=== PATIENT | male | born 1945 | race Caucasian/White ===

== ENCOUNTER 2017-11-30 13:51 | Emergency (ER) | payer MEDICARE, BC, SELFPAY ==
[2017-11-30] VITALS (42 sets, daily range): BP systolic 135–173; BP diastolic 54–126; PULSE 58–77; RESP 8–22; TEMP 36.7; O2SAT 95–98
--- NOTE | 2017-11-30 14:17 | DI.CT_ITS ---
SYMPTOM/DIAGNOSIS: LIGHTHEADEDNESS NONCONTRAST HEAD CT: Comparison is made with 14 Aug 2017. No intracranial hemorrhage, mass or infarct is seen. There is minimal atrophy. The ventricles are normal in size. There are minimal small vessel changes of the white matter. The sinuses and mastoid air cells appear clear. The orbits are unremarkable. IMPRESSION: No acute abnormality.
--- NOTE | 2017-11-30 14:18 | DI.RAD_ITS ---
SYMPTOM/DIAGNOSIS: NEAR SYNCOPE PORTABLE CHEST: No prior comparison exams. The heart is enlarged. The aorta shows calcification. The lungs show mildly increased interstitial changes. No superimposed infiltrate, effusion or pulmonary edema is seen. IMPRESSION: No acute abnormality.
[2017-11-30] MEDS: Normal Saline 1,000 ML 1000 ML IV (14:30)
[2017-11-30 14:37] LABS: Abs Immature Grans 0.01 k/cumm (0.0-0.09); Absolute Basophil Count 0.02 k/cumm (0.0-0.2); Absolute Eosinophil Count 0.01 k/cumm (0.0-0.7); Absolute Monocyte Count 0.34 k/cumm (0.11-0.7); Absolute Neutrophil Count 4.97 k/cumm (1.2-6.7); Basophils % 0.3; Eosinophils % 0.2; HCT 47.1 % (40.0-50.0); HGB 16.3 g/dL (13.5-17.5); Immature Grans % 0.2; Lymphocytes % 15.7; Mean Corp. HGB Concentration 34.6 g/dL (32.0-36.0); Mean Corpuscular Hemoglobin 30.9 pg (27.0-33.0); Mean Corpuscular Volume 89.4 fL (80-95); Mean Platelet Volume 9.7 fL (8.0-11.0); Monocytes % 5.4; Neutrophils % 78.2; Platelet Count 228 x1000/uL (130-400); RBC 5.27 m/cumm (4.50-6.00); RBC Distribution Width 13.3 % (11.8-14.1); White Blood Cell Count 6.35 k/cumm (4.4-10.8)
[2017-11-30 14:49] LABS: INR 1.1 (1.0-3.5)
[2017-11-30 14:54] LABS: ALT 24 U/L (12-78); AST 24 U/L (15-37); Albumin 3.9 g/dL (3.4-5.0); Alkaline Phosphatase 118 U/L (46-116); BUN 13 mg/dL (7-18); Bilirubin, Total 0.6 mg/dL (0.2-1.0); CREATININE 1.04 mg/dL (0.70-1.30); Calcium 9.1 mg/dL (8.5-10.1); Chloride 101 mmol/L (98-107); Glucose 154 mg/dL (70-100); Sodium 135 mmol/L (136-145); Total Protein 7.8 g/dL (6.4-8.2)
[2017-11-30 14:55] LABS: Troponin I < 0.02 ng/mL (0.00-0.06)
--- NOTE | 2017-11-30 15:06 | DI.VRAD_ITS ---
EXAM: CT Head Without Intravenous Contrast CLINICAL HISTORY: 72 years old, male; Signs and symptoms; Syncope and collapse TECHNIQUE: Axial computed tomography images of the head/brain without intravenous contrast. Coronal and sagittal reformatted images were created and reviewed. COMPARISON: CT - HEAD WITHOUT CONTRAST 08/14/2017 11:47 PM FINDINGS: Chronic white matter changes of probable small vessel disease. No evidence of hemorrhage. No mass effect. No acute intracranial abnormality. IMPRESSION: No evidence of acute intracranial process. Dictated and Authenticated by: Cuauhtemoc Roland MD. Ordering:JEAN PUAL CAVANAUGH MD
--- NOTE | 2017-11-30 15:08 | DI.VRAD_ITS ---
EXAM: XR Chest, 1 View CLINICAL HISTORY: 72 years old, male; Signs and symptoms; Other: Syncope TECHNIQUE: Frontal view of the chest. COMPARISON: No relevant prior studies available. FINDINGS: Diffuse interstitial lung scarring. Mild cardiomegaly. No focal pulmonary consolidation. Costophrenic angles sharp. Bony structures unremarkable for age. IMPRESSION: Mild chronic lung disease and minimal cardiomegaly without other specific etiology identified for the patient's symptoms. Dictated and Authenticated by: Cuauhtemoc Roland MD. Ordering:JEAN PAUL CAVANAUGH MD
--- NOTE | 2017-11-30 21:01 | ED.GENADUL_ITS ---
Discharge Plan Disposition Patient Disposition: HOME Condition: Good Discharge Details Chief Complaint: AMS/LOC Clinical Impression: Near syncope, Dehydration Reason For Visit: syncope /confusion Primary Care Provider: Anuel Landis ED Provider: Olivier Nick Home Meds and New Rx's Prescriptions: No Action lamotrigine 100 MG tablet 100 mg PO as directed Qty: 60 RF: 5 apixaban [Eliquis] 5 MG tablet 5 mg PO BID RF: 0 Discharge Instructions Instructions: Near Syncope (ED) Additional Instructions: Please take your home medications as directed. Please drink 8-10 cups of water per day. Please follow-up with your neurologist as soon as possible for reassessment. If you notice any worsening of your symptoms, or any new symptoms such as vomiting, diarrhea, fever, chills, shortness of breath, chest pain, numbness, weakness, or fainting , please return immediately to the emergency department for reevaluation. Please follow up with your primary care provider as soon as possible for reassessment and reevaluation. As always, it was a pleasure participating in your medical care today. You should not drive, operate machinery, climb heights (such as a ladder), swim , or bathe alone or do anything else which could be dangerous if you would have another seizure. Please abide by this for the next 6 months or until cleared by a physician. Referrals: Anuel Landis MD [Primary Care Provider] - Discharge Data Discharge Date/Time-TO BE ENTERED AT DEPARTURE: 11/30/17 17:53 Medical Decision Making MDM Narrative Medical decision making narrative: This is a very pleasant 72-year-old male who presents for mild lightheadedness. He states that it is been occurring since this morning. He has had no syncope, has not passed out, and has not hit his head. He is on Eliquis for A. fib. He is on lamotrigine for history of atypical seizures. Physical exam demonstrates mild dehydration with slightly dry tongue, otherwise normal physical exam. Most importantly demonstrates a completely benign normal neurologic exam, has no headache, no signs of trauma. Was able to get the patient seated upright quickly and he demonstrated no symptoms of lightheadedness. He demonstrates a normal mental status with no signs of confusion at this time. Laboratory workup, troponin, CT head, and chest x-ray are negative for any acute process. EKG shows good capture, negative for scarbossas criterion. I was able to get the patient up, ambulate him around and he did well without any complication. The patient has asked to leave, and states that if he could go right now he would be fine with signing his AMA waivers. I do not think this is needed at all as the remainder of the patient's laboratory workup has just returned as well as the results of his imaging studies. After being rehydrated the patient continues to feel very well and demonstrates a normal neurologic exam. I discussed the risks and benefits of further observation, serial troponins, and potential admission for neurology, versus discharge home with close neurology follow-up and PCP follow- up. Patient is requesting to be discharged with close follow-up. I feel that this is reasonable in light of his normal workup, negative imaging, normal neurologic exam. I feel symptoms most likely secondary to a mild dehydration etiology, and less likely cardiac or neurologic. I discussed red flags with the patient and his family member at bedside for which to return the patient understands. I have extensively reviewed the treatment plan and discharge instructions with the patient. I have addressed all patient concerns at this time. The patient was made aware of what symptoms to monitor for that would warrant a return to the emergency department. Discussed the plan with the patient, they demonstrate verbal understanding and agreement with our assessment and plan at this time. 14: 19 EKG Rate 60,EKG QTc 466, QRS 178, electronic ventricular pacing with good capture. 2 mm elevation in V2 and 3 mm elevation in V3 1 million mm elevation in V4. No inverted T waves. No Q waves. Review of prior EKGs from July 2017 demonstrate similar findings. EKG demonstrates good capture, negative for scarbossas criterion CT scan of the head per virtual radiology no evidence of acute intracranial process. X-ray per virtual radiology no evidence of acute process. Mild cardiomegaly, chronic interstitial lung disease.. Lab Data Lab Results 11/30/17 11/30/17 11/30/17 Range/Units 14:30 14:30 14:30 WBC 6.35 (4.4-10.8) k/cumm RBC 5.27 (4.50-6.00) m/cumm Hgb 16.3 (13.5-17.5) g/dL Hct 47.1 (40.0-50.0) % MCV 89.4 (80-95) fL MCH 30.9 (27.0-33.0) pg MCHC 34.6 (32.0-36.0) g/dL RDW 13.3 (11.8-14.1) % Plt Count 228 (130-400) x1000/uL MPV 9.7 (8.0-11.0) fL Immature Gran % 0.2 Neutrophils % 78.2 Lymphocytes % 15.7 Monocytes % 5.4 Eosinophils % 0.2 Basophils % 0.3 Absolute Neutrophils 4.97 (1.2-6.7) k/cumm Absolute Lymphocytes 1.00 L (1.2-3.4) k/cumm Absolute Monocytes 0.34 (0.11-0.7) k/cumm Absolute Eosinophils 0.01 (0.0-0.7) k/cumm Absolute Basophils 0.02 (0.0-0.2) k/cumm PT 11.0 H (9.3-10.8) sec INR 1.1 (1.0-3.5) APTT 28.0 (21.0-31.4) sec Sodium 135 L (136-145) mmol/L Potassium 4.0 (3.5-5.1) mmol/L Chloride 101 (98-107) mmol/L Carbon Dioxide 31.0 (21.0-32.0) mmol/L Anion Gap 3.0 (3-11) mmol/L BUN 13 (7-18) mg/dL Creatinine 1.04 (0.70-1.30) mg/dL Estimated GFR/1.73 m2 >= 60.00 (mL/min/1.73m2) Glucose 154 H (70-100) mg/dL Calcium 9.1 (8.5-10.1) mg/dL Total Bilirubin 0.6 (0.2-1.0) mg/dL AST 24 (15-37) U/L ALT 24 (12-78) U/L Alkaline Phosphatase 118 H (46-116) U/L Troponin I < 0.02 (0.00-0.06) ng/mL Total Protein 7.8 (6.4-8.2) g/dL Albumin 3.9 (3.4-5.0) g/dL HPI - General Adult General Date/Time Provider Initiated Documentation: 11/30/17 14:15 . HPI Narrative: This is a pleasant 72-year-old male with a past medical history of A. fib, who is on Eliquis, atypical seizures which usually present like syncope for which she is on lamotrigine, and a lead list pacemaker was just placed a few months ago at [facility]. He presents today with lightheadedness. The patient states that since this morning when he is sat upright quickly or has gotten up quickly he begins to get very lightheaded. He denies any loss of consciousness, tunnel vision, headache, chest pain, shortness of breath, arm pain, neck pain, vomiting diarrhea or weakness. He states that his symptoms are always fine if the stay seated, or takes this time. The patient states that he has a history of atypical seizures, for which she used to be on Keppra, but is now on lamotrigine. He sees a local neurologist Dr. Voss. He states that his seizures sometimes do present like this with mild lightheadedness. He denies any tonic-clonic movements. He denies any actual syncope, fall, or trauma. Patient denies any pertinent family history. He denies IV or illicit drug use. He has no other complaints at this time. He has been taking his medications as directed. Related Data Home Medications Medication Instructions Recorded Confirmed apixaban [Eliquis] 5 mg PO BID 07/02/17 11/30/17 Allergies Allergy/AdvReac Type Severity Reaction Status Date / Time garlic AdvReac Intermediate Other (See Unverified 09/12/17 12:28 Comment) gluten AdvReac Intermediate Other (See Unverified 09/12/17 12:28 Comment) lactose AdvReac Intermediate Other (See Unverified 09/12/17 12:28 Comment) wheat AdvReac Intermediate digestive Unverified 09/12/17 12:28 onion AdvReac Other (See Unverified 09/12/17 12:28 Comment) General Stated Complaint: AMS/LOC JULIANNA: 2 Review of Systems Review of Systems 10 point review of systems was performed, pertinent positives and negatives are noted in the history of present illness. PFSH Family History Mother Alzheimer disease Father Alcohol abuse [place] (myocardial infarction) Social History Smoking/Tobacco Use Status: Former Tobacco Use Surgical History Colonoscopy - IV Sedation (02/01/16) Exam Narrative Exam Narrative: 1.Const: Well-nourished, Well-developed, appearing stated age 2.Eyes: PERRL, no conjunctival injection, and symmetrical lids. 3.ENT: Atraumatic external nose and ears. Moist MM. Neck: Symmetric, trachea midline, No thyromegaly. 4.CVS: +S1/S2, No murmurs or gallops. Peripheral pulses 2+ and equal in all extremities. Brisk capillary refill in all extremities. 5.RESP: Unlabored respiratory effort. Clear to auscultation bilaterally. No wheezes rales or rhonchi 6.GI: Soft, Nontender/Nondistended, No hepatosplenomegaly. No guarding or rebound. 7.MSK: Normocephalic/Atraumatic, Extremities w/o deformity or ttp No cyanosis or clubbing, Normal movement of all extremities. I did get the patient up and sit him up quickly he tolerated this well with no lightheadedness. Patient did ambulate well without any difficulty. 8.Skin: Warm, Dry. No rashes or lesions. 9.Neuro: family dinner service specialist II-XII grossly intact. Sensation grossly intact, no focal neurologic deficits. All 6 cardinal planes of vision or fully intact. No evidence of horizontal or vertical nystagmus. The patient demonstrated a normal [id number], good dexterity. There was no evidence of dysdiadochokinesia. Patient was able to ambulate without difficulty. There was no wide-based gait. Romberg, and [id number] are both normal on testing. Sensation was intact bilaterally as well as muscle strength bilaterally for all extremities. Patient was able to verbalize butter cup with no slurring, or miss pronunciation. 10.Psych: (AAO) x3. Appropriate mood and affect Course Vital Signs Pulse 60 11/30/17 14:01 Respiratory Rate 13 11/30/17 14:01 Blood Pressure 157/70 H 11/30/17 14:01 Pulse Oximetry 97 11/30/17 14:01 Temperature 36.7 C 11/30/17 14:03 Pulse 61 11/30/17 17:54 Respiratory Rate 19 11/30/17 17:54 Blood Pressure 146/64 H 11/30/17 17:54 Pulse Oximetry 96 11/30/17 17:54 Lab/Test Results Lab/Test Results: Laboratory Tests 11/30/17 11/30/17 11/30/17 14:30 14:30 14:30 WBC 6.35 RBC 5.27 Hgb 16.3 Hct 47.1 MCV 89.4 MCH 30.9 MCHC 34.6 RDW 13.3 Plt Count 228 MPV 9.7 Immature Gran % 0.2 Neutrophils % 78.2 Lymphocytes % 15.7 Monocytes % 5.4 Eosinophils % 0.2 Basophils % 0.3 Absolute Neutrophils 4.97 Absolute Lymphocytes 1.00 L Absolute Monocytes 0.34 Absolute Eosinophils 0.01 Absolute Basophils 0.02 PT 11.0 H INR 1.1 APTT 28.0 Sodium 135 L Potassium 4.0 Chloride 101 Carbon Dioxide 31.0 Anion Gap 3.0 BUN 13 Creatinine 1.04 Estimated GFR/1.73 m2 >= 60.00 Glucose 154 H Calcium 9.1 Total Bilirubin 0.6 AST 24 ALT 24 Alkaline Phosphatase 118 H Troponin I < 0.02 Total Protein 7.8 Albumin 3.9
== END 2017-11-30 17:53 | disposition home or self-care (01) ==
PROVIDERS: Emergency Provider Student in an Organized Health Care Education/Training Program; PCP Internal Medicine
DX: R55 Syncope and collapse (principal); E86.0 Dehydration; Z95.0 Presence of cardiac pacemaker
CPT/HCPCS: 36415; 36416; 80053; 82962; 93005; 96360; 99285; 70450; 71045; 84484; 85025; 85610; 85730; 93010

== ENCOUNTER → 2017-12-09 14:03 | Outpatient (BNVA) | payer MEDICARE, BC, SELFPAY | PROVIDERS: PCP Internal Medicine; Visit Provider Psychiatry & Neurology Neurology | DX: G40.109 Localization-related (focal) (partial) symptomatic epilepsy and epileptic syndromes with simple partial seizures, not intractable, without status epilepticus (principal) | CPT/HCPCS: 99213 ==

== ENCOUNTER 2018-04-17 11:33 | Outpatient (CLI) | payer MEDICARE, BC, SELFPAY ==
--- NOTE | 2018-04-17 13:05 | DI.CT_ITS ---
SYMPTOMS/DIAGNOSIS: H/O CLOSED HEAD INJURY, Z87.820, FELL ON ICE, SHORT TERM MEMORY LOSS CRANIAL CT: The noncontrast enhanced examination was carried out according to the usual protocol. Atrophic changes consistent with age are demonstrated. There is no evidence of an intra or extra-axial hemorrhage, mass or fluid collection or edema. Regions of diminished absorption are noted in the frontoparietal white matter consistent with small vessel disease. The ventricles are intact. The midline is preserved throughout. There is no evidence of a skull fracture. There is no evidence of sinus disease. The mastoid air cells are intact with no evidence of a mastoid effusion. SUMMARY: No evidence of an acute intracranial abnormality.
== END 2018-04-17 11:53 ==
PROVIDERS: PCP Internal Medicine; Visit Provider Internal Medicine
DX: R41.3 Other amnesia (principal); Z87.820 Personal history of traumatic brain injury
CPT/HCPCS: 70450

== ENCOUNTER → 2018-05-05 13:44 | Outpatient (BNVA) | payer MEDICARE, BC, SELFPAY | PROVIDERS: PCP Internal Medicine; Visit Provider Internal Medicine Cardiovascular Disease | DX: R69 Illness, unspecified (principal) ==

== ENCOUNTER 2018-05-05 14:12 | Outpatient (CLI) | payer MEDICARE, BC, SELFPAY | END 2018-05-05 14:32 | PROVIDERS: PCP Internal Medicine; Visit Provider Internal Medicine Cardiovascular Disease | DX: I48.91 Unspecified atrial fibrillation (principal); I45.9 Conduction disorder, unspecified; Z95.0 Presence of cardiac pacemaker; I10 Essential (primary) hypertension; Z79.01 Long term (current) use of anticoagulants | CPT/HCPCS: 99204; 99214; 93005; 93010 ==

== ENCOUNTER 2018-06-03 09:19 | Outpatient (REF) | payer MEDICARE, BC, SELFPAY ==
[2018-06-03 13:17] LABS: TSH 1.57 uIU/mL (0.358-3.74)
[2018-06-04 10:01] LABS: Prolactin 8.6 ng/ml (2.1-17.7)
[2018-06-09 09:05] LABS: Misc Referral (UVM) See Comments
== END 2018-06-03 09:39 ==
LOC: NCHCN 09:19
PROVIDERS: PCP Internal Medicine; Visit Provider Internal Medicine
DX: R53.83 Other fatigue (principal); N52.9 Male erectile dysfunction, unspecified
CPT/HCPCS: 84402; 84403; 84146; 84443

== ENCOUNTER → 2018-06-09 12:13 | Outpatient (BNVA) | payer MEDICARE, BC, SELFPAY | PROVIDERS: PCP Internal Medicine; Visit Provider Psychiatry & Neurology Neurology | DX: G40.109 Localization-related (focal) (partial) symptomatic epilepsy and epileptic syndromes with simple partial seizures, not intractable, without status epilepticus; G60.9 Hereditary and idiopathic neuropathy, unspecified; I10 Essential (primary) hypertension | CPT/HCPCS: 99214 ==

== ENCOUNTER → 2018-11-05 13:25 | Outpatient (BNVA) | payer MEDICARE, BC, SELFPAY | PROVIDERS: PCP Internal Medicine; Referring Provider Internal Medicine; Visit Provider Student in an Organized Health Care Education/Training Program | DX: M72.0 Palmar fascial fibromatosis [Dupuytren] (principal) | CPT/HCPCS: 99204; 99213 ==

== ENCOUNTER 2018-11-28 15:21 | Outpatient (REF) | payer MEDICARE, BC, SELFPAY ==
[2018-12-01 10:44] LABS: PSA, Screening 2.1 ng/ml (0-6.5)
== END 2018-11-28 15:41 ==
LOC: NCHCN 15:21
PROVIDERS: PCP Internal Medicine; Visit Provider Internal Medicine
DX: Z12.5 Encounter for screening for malignant neoplasm of prostate (principal); N40.0 Benign prostatic hyperplasia without lower urinary tract symptoms
CPT/HCPCS: 84153

== ENCOUNTER → 2018-12-08 09:30 | Outpatient (BNVA) | payer MEDICARE, BC, SELFPAY | PROVIDERS: PCP Internal Medicine; Visit Provider Psychiatry & Neurology Neurology | DX: G40.109 Localization-related (focal) (partial) symptomatic epilepsy and epileptic syndromes with simple partial seizures, not intractable, without status epilepticus; G60.9 Hereditary and idiopathic neuropathy, unspecified; Z78.9 Other specified health status; I10 Essential (primary) hypertension | CPT/HCPCS: 99214 ==

== ENCOUNTER 2019-02-10 08:48 | Day surgery (SDC) | payer MEDICARE, BC, SELFPAY ==
[2019-02-10 09:16] VITALS: BP 148/80; PULSE 79; RESP 16; TEMP 36.7; O2SAT 98
[2019-02-10] MEDS: Lactated Ringers 1,000 ML 80 ML IV (09:45)
--- NOTE | 2019-02-10 11:09 | HPE_ITS ---
Date of service: 02/10/19 Time of Service: 11:10 Assessment and Plan Assessment and plan (1) Dupuytren's contracture of left hand: Status: Chronic Assessment and plan: Valdemar is a 73yo with Dupuytren's contracture of the left hand. He has significant limitations due to the contracture and would benefit from partial palmar fasciectomy. I discussed the risks of the procedure to include bleeding, infection, pain, stiffness, damage to nerves and vessels, recurrence, skin healing difficulties. Despite these risks he agrees to proceed. He has stopped his Eliquis for 24 hours. History of Present Illness History of Present Illness Chief Complaint: Left Little Finger Dupuytren's Contracture Narrative: Valdemar is a 73yo who has had progressive dysfunction due to contracture of the left little finger. He was diagnosed with Dupuytren's contracture. After discussing treatment options, he desired to proceed with surgery. He denies any numbness or tingling. He has had no changes to the skin or signs of infection. He has known A-fib which is relatively controlled with medications and pacer. He is on Eliquis for anti-coagulation. 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) Manifested by confusion and asystole Hypertension (Chronic) Skin carcinoma (Chronic) Tubular adenoma of colon (Chronic 02/01/16) Surgical History Colonoscopy - IV Sedation (02/01/16) History of tonsillectomy (Chronic) Pacemaker (Acute) June 2017 Social History Smoking/Tobacco Use Status: Former Tobacco Use Quit Date: 03/25/66 Alcohol Intake: current Alcohol Intake frequency: 0-2 drinks per day Alcohol type: wine Drug use: Never Household members: spouse current occupation: Works for the [employer] Do you feel safe at home: Yes Do you feel safe in your relationship?: Yes Additional Social history: . 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 Former smoker. He drinks one glass of wine most evenings. No illicit drug use. Meds Home Medications and Allergies Home Medications Medication Instructions Recorded Confirmed Type Eliquis 5 mg PO BID 07/02/17 02/10/19 History clonazepam 0.5 mg disintegrating 0.5 mg PO DIRECTED #10 tab 12/09/17 02/10/19 Rx tablet amlodipine 5 mg tablet 5 mg PO DAILY 05/05/18 02/10/19 History lamotrigine 100 mg tablet 100 mg PO BID #180 tab 12/08/18 02/10/19 Rx Allergies Allergy/AdvReac Type Severity Reaction Status Date / Time garlic AdvReac Intermediate Other (See Unverified 02/10/19 09:14 Comment) gluten AdvReac Intermediate Other (See Unverified 02/10/19 09:14 Comment) lactose AdvReac Intermediate Other (See Unverified 02/10/19 09:14 Comment) wheat AdvReac Intermediate digestive Unverified 02/10/19 09:14 onion AdvReac Other (See Unverified 02/10/19 09:14 Comment) Exam Const General: cooperative, healthy appearing, comfortable and no acute distress Nutritional Appearance: average body habitus Orientation: alert, awake and oriented x3 Resp Effort & Inspection: normal respiratory effort Auscultation: clear to auscultation bilaterally Cardio Rate: regular rate Rhythm: abnormal rhythm Extrem Other: Left hand shows significant contracture of the left little finger, 90degrees at the MCP joint. SILT dorsally and palmarly to the finger. Results Last Vital Signs Temp 36.7 C 02/10/19 09:16 Pulse 79 02/10/19 09:16 Resp 16 02/10/19 09:16 BP 148/80 H 02/10/19 09:16 Pulse Ox 98 02/10/19 09:16
--- NOTE | 2019-02-10 11:25 | W.PM.DSUDISC ---
Discharge Plan Disposition Patient Disposition: HOME Condition: Good Discharge Details Reason For Visit: LLF Dupuytren's Attending Provider: Radhames Wang Primary Care Provider: Anuel Landis Home Meds and New Rx's Prescriptions: New hydrocodone-acetaminophen 5-325 mg tablet 1 tab PO Q6H PRN PRN (Reason: pain) Qty: 8 RF: 0 acetaminophen 500 mg tablet 500 mg PO Q6H PRN PRN (Reason: pain) Qty: 60 RF: 3 ibuprofen 600 mg tablet 600 mg PO TID PRNQty: 30 RF: 3 Continued amlodipine 5 mg tablet 5 mg PO DAILY RF: 0 clonazepam 0.5 mg tablet,disintegrating 0.5 mg PO DIRECTED Qty: 10 RF: 0 lamotrigine 100 mg tablet 100 mg PO BID Qty: 180 RF: 3 Eliquis 5 MG tablet 5 mg PO BID RF: 0 Discharge Instructions Additional Instructions: Activity: You may use your fingers for light activity. You should limit any excessive motion or forceful gripping until the sutures have been removed. Splint may be worn for the first 3 days and then at night to help keep the finger extended. Dressings: You should keep the initial surgical dressing in place for at least 3 days. You may remove your dressings and get the wound wet after 3 days. You should keep the dressings and the wound clean at all times. You may keep the initial dressing in place until your follow-up but keep the wound covered with light gauze until the sutures are removed. You will have a splint to help keep the finger extended. This may be removed at 3 days and used as desired. Medications: - You should take Tylenol and Ibuprofen around the clock as prescribed or per field laboratory operator's recommendations. - You have Hydrocodone prescribed for breakthrough pain control. Take only as needed and limit use as much as possible. This may cause constipation. Follow-up: 7-10 days for wound check and suture removal. Referrals: Radhames Wang MD [ [facility] STAFF PHYSICIAN] - Equipment/Supplies: Splint Activity:: Elevate Remove Dressings/Wound Care:: 72 hours Shower/Bathe:: 72 hours Diet:: As Tolerated Discharge Orders Discharge Orders: Discharge Order (Routine); Ordered 02/10/19 Ordered By: Radhames Wang DS: Diagnosis Discharge Diagnosis (1) Dupuytren's contracture of left hand: Status: Chronic
[2019-02-10] MEDS: ceFAZolin 2 GM/50 ML BAG IVPB (11:34)
[2019-02-10] MEDS: Lidocaine 1% Multi-Dose 50 ML VIAL (11:43)
[2019-02-10] MEDS: Sodium Bicarbonate 50 MEQ/50 ML VIAL (11:43)
[2019-02-10] MEDS: Bupivacaine 0.5% Pres-Free 30 ML VIAL (12:02)
[2019-02-10 13:20] VITALS: BP 137/74; PULSE 62; RESP 16; TEMP 36.2; O2SAT 97
--- NOTE | 2019-02-11 09:05 | ROE_ITS ---
February 10, 2019 PREOPERATIVE DIAGNOSIS: Left hand Dupuytren's contracture involving the left little finger. POSTOPERATIVE DIAGNOSIS: Same. OPERATION: Partial palmar fasciectomy of Dupuytren's contracture from the palm and left little finger. ANESTHESIA: MAC ESTIMATED BLOOD LOSS: 20 cc. COMPLICATIONS: None. DISPOSITION: The patient was awakened from anesthesia and taken to the Post Anesthesia Care Unit in stable condition. INDICATIONS FOR PROCEDURE: Valdemar is a 73-year-old who has had progressive contracture of the left little finger which has led to dysfunction of the left hand. He had an metacarpophalangeal joint contracture of nearly 90 degrees and a proximal interphalangeal joint contracture of 60 degrees. Given the deficits from lack of motion I did offer surgical intervention. I reviewed the possible surgical options and recommended a partial palmar fasciectomy. I reviewed the risks of the procedure to include bleeding, infection, damage to nerves and vessels, recurrence, continued deformity, skin healing difficulties, need for repeat procedure. Despite these risks he elected to proceed. PROCEDURE: Valdemar was greeted in the preoperative holding area. Identity was confirmed and the correct size was identified and marked. The consent was reviewed with the patient and signed. History and physical was updated. The patient was taken to the Operating Room and placed in the supine position. All bony prominences were padded. The left hand was placed onto the hand table. The nonsterile tourniquet was placed high up on the left arm. Prophylactic antibiotic in the form of Cefazolin was given. The left arm was then prepped with ChloraPrep and draped in the standard fashion. Time out was performed for safe surgery. A Edgar type incision was made along the cord within the palm, up onto the finger to the level of the proximal interphalangeal joint. The purposed incision site was injected with 10 cc. of buffered 1% Lidocaine. The tourniquet was then inflated. The skin was incised sharply. Using Charnley scissors I was able to dissect the deeper subcutaneous tissue to identify the cords. Once the cord was identified I stayed on top of the cord and released any soft tissue attachments. I was able to free up the cord from its base within the palm and working distally. I worked to the level of the metacarpophalangeal joint. Once the cord was fully visualized in this area I transected it proximally and elevated it off and resected in whole, all the way to the metacarpophalangeal joint. At the level of the metacarpophalangeal joint there is notable contracture of the skin. This is elevated off the cord but thinning the skin significantly in this area. The cord was then continued to be followed up onto the level of the proximal interphalangeal joint, inserting down at the level of the level of the A-3 gaston. The cord was resected in whole. There was no crossing neurovascular structures. This released the metacarpophalangeal joint completely. However, there was still some contracture of the proximal interphalangeal joint. There was noted to be a lateral band. This was identified at the level of the proximal interphalangeal joint. The contracted tissue was easily identifiable in comparison to the other tissue in the area. It was isolated and transected. I did not try to resect the lateral cord completely. This allowed improved proximal interphalangeal motion, lacking only about 20 degrees of extension. There was a palpable central cord extending to the middle finger but there was no contraction and this was not discussed in the preoperative findings so it was not addressed at this time. The wounds were then irrigated, the tourniquet was deflated. There was some brisk bleeding seen at the level of the proximal phalanx, however, I was unable to identify any true arterial injury. The wound was held with some pressure for a few minutes and all bleeding was managed. The skin was then closed with #4-0 nylon. Some tissue rearrangement was performed as the finger was now much straighter than it was previously. The finger was able to obtain 0 degrees of extension at the metacarpophalangeal joint and 20 degrees of extension at the PIP joint. The wound was dressed with Xeroform, 4 x 4s and Webril. It was placed into an ulnar gutter splint, keeping the finger in extension at both the proximal interphalangeal joint and metacarpophalangeal joint. Capillary refill was less than 2 second. The finger was warm and well perfused. At the end of the case all counts were correct.
== END 2019-02-10 13:50 | disposition home or self-care (01) ==
PROVIDERS: PCP Internal Medicine; Visit Provider Student in an Organized Health Care Education/Training Program
PROC: (CPT 26123; principal; 2019-02-10 11:00)
DX: M72.0 Palmar fascial fibromatosis [Dupuytren] (principal); Z79.01 Long term (current) use of anticoagulants; I48.20 Chronic atrial fibrillation, unspecified; I10 Essential (primary) hypertension
CPT/HCPCS: 26123; NC; J0690; J1885; J2405

== ENCOUNTER → 2019-02-23 10:14 | Outpatient (BNVA) | payer MEDICARE, BC, SELFPAY | PROVIDERS: PCP Internal Medicine; Referring Provider Internal Medicine; Visit Provider Student in an Organized Health Care Education/Training Program | DX: M72.0 Palmar fascial fibromatosis [Dupuytren] (principal); Z47.89 Encounter for other orthopedic aftercare; I10 Essential (primary) hypertension ==

== ENCOUNTER → 2019-03-30 09:05 | Outpatient (BNVA) | payer MEDICARE, BC, SELFPAY | PROVIDERS: PCP Internal Medicine; Referring Provider Internal Medicine; Visit Provider Student in an Organized Health Care Education/Training Program | DX: Z47.89 Encounter for other orthopedic aftercare (principal); M72.0 Palmar fascial fibromatosis [Dupuytren]; I10 Essential (primary) hypertension ==

== ENCOUNTER → 2019-05-07 10:18 | Outpatient (BNVA) | payer MEDICARE, BC, SELFPAY | PROVIDERS: PCP Internal Medicine; Referring Provider Internal Medicine; Visit Provider Internal Medicine Cardiovascular Disease | DX: I48.20 Chronic atrial fibrillation, unspecified (principal); I34.0 Nonrheumatic mitral (valve) insufficiency; I10 Essential (primary) hypertension; Z95.0 Presence of cardiac pacemaker; I49.5 Sick sinus syndrome | CPT/HCPCS: 99204; 99215 ==

== ENCOUNTER → 2019-11-09 10:15 | Outpatient (BNVA) | payer MEDICARE, BC, SELFPAY | PROVIDERS: PCP Internal Medicine; Referring Provider Internal Medicine; Visit Provider Psychiatry & Neurology Neurology | DX: G40.109 Localization-related (focal) (partial) symptomatic epilepsy and epileptic syndromes with simple partial seizures, not intractable, without status epilepticus (principal); G60.9 Hereditary and idiopathic neuropathy, unspecified; Z78.9 Other specified health status | CPT/HCPCS: 99213; 99442 ==

== ENCOUNTER 2020-11-15 12:14 | Outpatient (REF) | payer MEDICARE, BC, SELFPAY ==
[2020-11-15 20:12] LABS: Anion Gap 6.7 mmol/L (3-11); BUN 14 mg/dL (7-18); CO2 27.3 mmol/L (21.0-32.0); CREATININE 1.1 mg/dL (0.70-1.30); Calcium 9.8 mg/dL (8.5-10.1); Chloride 104 mmol/L (98-107); Glucose 80 mg/dL (74-106); Potassium 4.5 mmol/L (3.5-5.1); Sodium 138 mmol/L (136-145)
== END 2020-11-15 12:15 | disposition home or self-care (01) ==
LOC: NCHCN 12:14
PROVIDERS: PCP Internal Medicine; Visit Provider Internal Medicine
DX: I10 Essential (primary) hypertension (principal)
CPT/HCPCS: 80048

== ENCOUNTER → 2020-11-16 10:43 | Outpatient (BNVA) | payer MEDICARE, BC, SELFPAY | PROVIDERS: PCP Internal Medicine; Visit Provider Psychiatry & Neurology Neurology | DX: G40.109 Localization-related (focal) (partial) symptomatic epilepsy and epileptic syndromes with simple partial seizures, not intractable, without status epilepticus (principal); G60.9 Hereditary and idiopathic neuropathy, unspecified; G31.84 Mild cognitive impairment of uncertain or unknown etiology; I10 Essential (primary) hypertension; G62.9 Polyneuropathy, unspecified | CPT/HCPCS: 99215 ==

== ENCOUNTER → 2021-08-30 01:09 | Outpatient (CLI) | payer MEDICARE, BC, SELFPAY ==
--- NOTE | 2021-08-30 15:03 | DI.US_ITS ---
APPROVED REPORT EXAM: Comprehensive 2D, Doppler, and color-flow Echocardiogram Patient Location: Out-Patient Theatrical Performer: Tracie Mccartney RDCS (AE) Indications: Mitral regurgitation, Chronic A Fib Other Information Study Quality: Adequate Conclusion Normal left ventricular wall thickness and chamber size. Estimated ejection fraction is approximatel y 60%. Wall motion is normal Normal right ventricular size and systolic function Left atrium is mildly dilated. The right atrium is normal in size Aortic valve is trileaflet and sclerotic with mild regurgitation Mitral annular calcification. Moderate mitral regurgitation Normal tricuspid valve with mild regurgitation. Estimated right ventricular systolic pressure is 22 mmHg Mildly dilated ascending aorta, 3.72 cm Wall motion Left Ventricle The left ventricle is normal size. The left ventricular systolic function is normal. The left ventric ular ejection fraction is within the normal range. There is normal left ventricular wall thickness. T here is normal LV segmental wall motion. There is no ventricular septal defect visualized. LVEF is 58 %. Right Ventricle The right ventricle is normal size. The right ventricular systolic function is normal. The RVSP is 22 .0mmHg. Atria Left atrium is mildly dilated. The right atrium size is normal. The interatrial septum is intact with no evidence for an atrial septal defect. Aortic Valve The Aortic valve is sclerotic. Aortic valve is trileaflet. There is no aortic valvular stenosis. Mild aortic regurgitation. Mitral Valve Mild mitral annular calcification. No evidence of mitral valve stenosis. Moderate mitral regurgitatio n. Tricuspid Valve The tricuspid valve is normal in structure. There is no tricuspid valve stenosis. Mild tricuspid regu rgitation. Pulmonic Valve The pulmonary valve is normal in structure. There is no pulmonic valvular stenosis. Trace pulmonic re gurgitation. Great Vessels The aortic root is normal in size. The ascending aorta is mildly dilated. Aortic arch is normal in ca liber. IVC is normal in size and collapses >50% with inspiration. Pericardium There is no pericardial effusion. 2D Dimensions IVSD d PLAX 1.06 cm M: 0.6-1.2 LV Vol A2C d MOD 135.4 mL LVPW d PLAX 1.08 cm M: 0.6 - 1.2 LV Vol A4C d MOD 165.8 mL LVID d PLAX 5.06 cm M: 4.2 - 5.8 LA vol/ BSA A4C s A-L 33.1 mL/m2 LVDs 3.40 cm M: 2.5 - 4.0 LA Area A4C s MOD 21.61 cm2 Ao Root d 3.57 cm M: 3.1 - 3.7 LV EF A4C MOD 59.3 % RA Area A4C 20.17 cm2 LV EF A2C MOD 57.1 % RA Vol/ BSA A4C s A-L 24.2 mL/m2 LV EF Biplane MOD 57.9 % Ao Asc Diam d 3.72 cm M: 2.6 - 3.4 SV 89.05 mL LV EF Teichholz 59.6 % SV Index 40.95 mL/m2 LVEF (Root's) 57.91 % M: 52 - 72 LV Volume 112.25 mL M: 62 - 150 LV Volume Index 51.72 mL/m2 M: 34 - 74 LV Vol Biplane MOD 153.8 mL FS 31.75 % M-Mode TAPSE 2.35 cm (M/F) >1.7 LV Diastology MV E' medial 0.089 (>0.07 m/s) MV E Vmax 1.05 (0.4-1.3 m/s) LV E/e MED 11.80 (<14) MV E' lateral 0.123 (>0.1 m/s) LV E/e LAT 8.50 (<14) MV E/E' medial 11.82 MV E/E' lateral 8.54 Aortic Valve LVOT Area 3.88 cm2 AoV Area Vmax 3.69 cm2 LVOT Vmax 1.46 m/s AoV Area/ BSA (Vmax) 1.70 cm2/m2 LVOT Mean Kirill. 1.02 m/s ZACK Mean Kirill. 3.18 cm2 LVOT Peak Grad 8.5 mmHg ZACK Mean Kirill. Index 1.46 cm2/m2 LVOT Mean Grad 4.8 mmHg AR DT 1950 msec LVOT VTI 0.262 m AR PHT 565 msec LVOT Diam s 2.20 cm AoV Vmax 1.54 m/s Velocity Ratio 0.94 AoV Mean Kirill. 1.24 m/s AoV Peak Grad 9.5 mmHg LVOT SV 101.58 mL AoV Mean Grad 6.6 mmHg AoV VTI 0.376 m AoV Area VTI 2.70 cm2 AoV Area/ BSA (VTI) 1.24 cm/m2 Mitral Valve MV DT 237 (160-240 msec) MV PHT 69 msec MV Area PHT 3.20 cm2 MV VTI 0.296 m MV Area VTI 3.43 (4.0-6.0 cm2) Pulmonary Valve PV Vmax 1.21 (0.5-1.5 m/s) RVOT Peak Gr. 1.99 mmHg PV Peak Grad 5.8 mmHg RVOT Mean Gr. 1.00 mmHg PV Mean Grad 3.3 mmHg RVOT VTI 0.116 m PV VTI 0.225 m RVOT Vmax 0.71 m/s Tricuspid Valve TR Peak Grad 19.0 mmHg TR Vmax 2.18 m/s RA Pressure 3.00 mmHg RVSP (TR) 22.0 mmHg
== END ==
PROVIDERS: PCP Internal Medicine; Visit Provider Internal Medicine Cardiovascular Disease
DX: I34.0 Nonrheumatic mitral (valve) insufficiency (principal); I48.20 Chronic atrial fibrillation, unspecified
CPT/HCPCS: 93306

== ENCOUNTER 2021-09-04 08:49 | Outpatient (CLI) | payer MEDICARE, BC, SELFPAY ==
--- NOTE | 2021-09-04 08:45 | RT.EKG_ITS ---
APPROVED REPORT Exam: Resting ECG Reason for Exam: AFIB Patient Location: O HR:60 bpm ECG Measurements Heart Rate 60 AXIS NH [id number] P [id number] QRSd 171 QRS -28 QT 472 T 127 QTc 472 Conclusion Afib/flut and V-paced complexes...other complexes, A-rate>240 No further analysis attempted due to paced rhythm
== END 2021-09-04 08:50 | disposition home or self-care (01) ==
LOC: DI.CARD 08:50
PROVIDERS: PCP Internal Medicine; Visit Provider Internal Medicine Cardiovascular Disease
DX: I48.91 Unspecified atrial fibrillation (principal); Z95.0 Presence of cardiac pacemaker
CPT/HCPCS: 93010

== ENCOUNTER → 2021-09-04 13:34 | Outpatient (BNVA) | payer MEDICARE, BC, SELFPAY | PROVIDERS: PCP Family Medicine; Referring Provider Internal Medicine; Visit Provider Internal Medicine Cardiovascular Disease | DX: I48.91 Unspecified atrial fibrillation (principal); I10 Essential (primary) hypertension; Z95.0 Presence of cardiac pacemaker | CPT/HCPCS: 93005; 99214; 99213 ==

== ENCOUNTER 2021-10-03 14:49 | Outpatient (REF) | payer MEDICARE, BC, SELFPAY ==
[2021-10-05 10:55] LABS: COVID-19 RT-PCR UVMMC Result Negative (Negative)
== END 2021-10-03 14:50 | disposition home or self-care (01) ==
LOC: LBN 14:49
PROVIDERS: PCP Family Medicine; Visit Provider Family Medicine
DX: Z20.822 Contact with and (suspected) exposure to COVID-19 (principal); J06.9 Acute upper respiratory infection, unspecified
CPT/HCPCS: U0003

== ENCOUNTER 2021-10-26 20:40 | Emergency (ER) | payer MEDICARE, BC, SELFPAY ==
[2021-10-26 20:47] VITALS: BP 160/69; PULSE 65; RESP 14; TEMP 36.5; O2SAT 97
--- NOTE | 2021-10-26 21:30 | DI.RAD_ITS ---
Exam(s) XR RIBS RT W PA LAT CHEST EXAM: XR RIBS RT W PA LAT CHEST CLINICAL HISTORY: fell 1.5 weeks ago, pain and tender TECHNIQUE: 2D digital imaging was performed.Five images were obtained. COMPARISON: CR XR PORTABLE CHEST AP from 11/30/2017 FINDINGS: MEDIASTINUM: Normal. HEART: Normal. PULMONARY VASCULATURE: Normal. LUNGS: Clear. PLEURAL SPACE: No pleural effusion or pneumothorax. BONE:Normal. RIGHT RIBS: Normal. OTHER FINDINGS:Metallic devices again seen in the anterior chest is unchanged. This may represent a cardiac monitoring device. IMPRESSION: 1. No acute pulmonary findings. 2. Unremarkable right ribs. DATA REPOSITORY: RADIATION DOSE DELIVERED:
--- NOTE | 2021-10-26 21:38 | W.ED.GENAD ---
Discharge Plan Disposition Patient Disposition: HOME Condition: Stable Discharge Details Clinical Impression: Contusion of rib on right side Primary Care Provider: Corey Rodriguez ED Provider: Vijay Ge Home Meds and New Rx's Prescriptions: Continued amlodipine 5 mg tablet 5 mg PO DAILY sildenafil 100 mg tablet 100 mg PO DAILY PRN clonazepam 0.5 mg tablet,disintegrating 0.5 mg PO DIRECTED Qty: 10 0RF Rx Instructions: Take if you have more than one seizure. Ok to take a second if still having seizure. No more than 2 in 24 hours. lamotrigine 100 mg tablet 100 mg PO BID Qty: 180 3RF Rx Instructions: Take 100mg in am and 100mg in pm; Eliquis 5 MG tablet 5 mg PO BID acetaminophen 500 mg tablet 500 mg PO Q6H PRN PRN (Reason: pain) Qty: 60 3RF ibuprofen 600 mg tablet 600 mg PO TID PRNQty: 30 3RF tamsulosin 0.4 mg capsule 1 cap PO DAILY Discharge Instructions Instructions: How to Use an Incentive Spirometer (ED) Additional Instructions: Use lidocaine patches. These are available [id number]. Dose according to label. Use incentive spirometer every 2-3 hours while awake for the next 1 week. Please contact your primary care physician as needed to arrange follow-up. Return to the ER immediately for any worsening or new concerning symptoms. Referrals: Corey Rodriguez MD [Primary Care Provider] - Medical Decision Making 2149 --76-year-old male here with right lower lateral rib pain for the past week and a half after fall, worse over the past few days after twisting. Patient has no pain sitting at rest but does have pain when he turns his body and on palpation. I am concerned about a rib fracture. Consider pneumothorax. Plan to obtain x-ray with rib series. I offered Tylenol and ibuprofen and patient declined. I will place lidocaine patch. 2254 --chest x-ray with rib series was interpreted by radiology: No fracture. Results were discussed with the patient. Patient was given incentive spirometry with instruction. Usual customary discharge instructions reviewed. HPI General Mode of arrival: ambulatory. Date/Time Provider Initiated Documentation: 10/26/21 20:52. Limitations to Documentation: no limitations. Information obtained by: patient. HPI Narrative: 76-year-old male presents with chief complaint of rib pain. Patient notes he tripped and fell while carrying a box about a week and a half ago. During the fall he impacted his right lateral lower ribs. He initially had pain in the area that seem to improve over the course of days. Notes a few days ago he twisted his body and pain worsened in the area. Pain continues to present and is worse in certain positions with twisting. Feels sharp. He has no associated shortness of breath. No abdominal pain. Related Data Home Medications Medication Instructions Recorded Confirmed apixaban 5 mg tablet (Eliquis) 5 mg PO BID 07/02/17 10/26/21 amlodipine 5 mg tablet 5 mg PO DAILY 05/05/18 10/26/21 acetaminophen 500 mg tablet 500 mg PO Q6H PRN PRN pain #60 tabs 02/10/19 10/26/21 ibuprofen 600 mg tablet 600 mg PO TID PRN #30 tabs 02/10/19 09/04/21 sildenafil 100 mg tablet 100 mg PO DAILY PRN 05/04/19 10/26/21 clonazepam 0.5 mg disintegrating 0.5 mg PO DIRECTED #10 tabs 06/04/19 10/26/21 tablet lamotrigine 100 mg tablet 100 mg PO BID #180 tabs 10/24/20 10/26/21 tamsulosin 0.4 mg capsule 1 cap PO DAILY 10/26/21 10/26/21 Previous Rx's Medication Instructions Recorded acetaminophen 500 mg tablet 500 mg PO Q6H PRN PRN pain #60 tabs 02/10/19 ibuprofen 600 mg tablet 600 mg PO TID PRN #30 tabs 02/10/19 clonazepam 0.5 mg disintegrating 0.5 mg PO DIRECTED #10 tabs 06/04/19 tablet lamotrigine 100 mg tablet 100 mg PO BID #180 tabs 10/24/20 Allergies Allergy/AdvReac Type Severity Reaction Status Date / Time garlic AdvReac Intermediate Other (See Verified 10/26/21 20:51 Comment) gluten AdvReac Intermediate Other (See Verified 10/26/21 20:51 Comment) lactose AdvReac Intermediate Other (See Verified 10/26/21 20:51 Comment) wheat AdvReac Intermediate digestive Verified 10/26/21 20:51 onion AdvReac Other (See Verified 10/26/21 20:51 Comment) General Stated Complaint: Nk/Back Pain JULIANNA: 4 Review of Systems Cardiovascular Cardiovascular: Denies chest pain and Denies dyspnea Respiratory Respiratory: Denies dyspnea Gastrointestinal Gastrointestinal: Denies abdominal pain Musculoskeletal Musculoskeletal: Reports as per HPI [facility] All Active Problems (Updated 10/26/21 @ 22:55 by Vijay Ge MD) Contusion of rib on right side (Acute) Mild cognitive impairment (Acute) Mitral insufficiency (Chronic) Atrial fibrillation (Chronic) Erectile dysfunction (Acute) Dupuytren's contracture of left hand (Chronic) Status post partial palmar fasciectomy 02/10/2019 Normal memory function (Acute) Idiopathic peripheral neuropathy (Chronic) Skin carcinoma (Chronic) Pacemaker (Acute) June 2017 BPH (benign prostatic hyperplasia) (Chronic) Aortic insufficiency (Chronic) Hypertension (Chronic) Tubular adenoma of colon (Chronic 02/01/16) 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) Manifested by confusion and asystole Chronic atrial fibrillation (Chronic) Medical History (Updated 10/26/21 @ 22:55 by Vijay Ge MD) Complete heart block Lower gastrointestinal bleed Peripheral neuropathy Sick sinus syndrome Surgical History Colonoscopy - IV Sedation (02/01/16) History of tonsillectomy Family History Mother Alzheimer disease Hypertension Father ETOH abuse [place] (myocardial infarction) Social History Smoking/Tobacco Use Status: Former Tobacco Use Quit Date: 03/25/1966 Smoking risk assessment performed?: Yes Alcohol Intake: current Alcohol Intake frequency: 0-2 drinks per day Alcohol type: wine Drug use: Never Household members: spouse current occupation: Works for the [employer] Current gender identity: male Do you feel safe at home: Yes Do you feel safe in your relationship?: Yes Additional Social history: . 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 Former smoker. He drinks one glass of wine most evenings. No illicit drug use. Exam Const General: cooperative and no acute distress HENMT Mouth: moist mucous membranes Eyes Conjunctivae: normal conjunctivae Sclera: normal sclerae Neck Neck: trachea midline Chest Chest: no crepitus and tenderness rib (right lower lateral) Resp Auscultation: clear to auscultation bilaterally, no rales, no rhonchi and no wheezes Cardio Rate: regular rate and not tachycardic Rhythm: regular rhythm GI Palpation: soft, not firm, no guarding, no masses, not rigid and nontender Skin General skin exam: no rashes or lesions noted Neuro General: patient alert, patient awake and tone normal Course Vital Signs Vital signs: Vital Signs Temperature 36.5 C 10/26/21 20:47 Pulse 65 10/26/21 20:47 Respiratory Rate 14 10/26/21 20:47 Blood Pressure 160/69 H 10/26/21 20:47 Pulse Oximetry 97 10/26/21 20:47 Temperature 36.5 C 10/26/21 20:47 Temperature Source Skin 10/26/21 20:47 Pulse 65 10/26/21 20:47 Respiratory Rate 14 10/26/21 20:47 Respiratory Effort Non-Labored 10/26/21 20:54 Blood Pressure 160/69 H 10/26/21 20:47 Blood Pressure Position Sitting 10/26/21 20:47 Pulse Oximetry 97 10/26/21 20:47 Oxygen Delivery Method Room Air 10/26/21 20:47 Oxygen Flow Rate 0 10/26/21 20:47 Pain Level 0 10/26/21 20:47 Comment 10/26/21 20:47 PAWSS Have you Been Recently Intoxicated or Drunk Within the Last 30 days?: No Have you Ever Experienced Previous Episodes of Alcohol Withdrawal?: No Have you ever Experienced Withdrawal Seizures?: No Have you ever Experienced Delirium Tremens(DT)s?: No Have you ever undergone Alcohol Rehabilitation Treatment (i.e, inpt ot outpatient treatment programs)?: No Have you ever Experienced Blackouts?: No Have you ever Combined Alcohol with other Downers within the last 90 days?: No Have you ever Combined Alcohol with any other Substance of Abuse during the last 90 days?: No Positive Blood Alcohol level on Presentation? [PCS.BAL]: No Evidence of Increased Autonomic Activity (i.e. HR>120, tremor, sweating, agitation, nausea)?: No Result: 0
[2021-10-26] MEDS: Lidocaine 5% Patch 1 PATCH TP (21:43)
--- NOTE | 2021-10-26 22:45 | DI.VRAD_ITS ---
PROCEDURE INFORMATION: Exam: XR Right Ribs Exam date and time: 10/26/2021 9:49 PM Age: 76 years old Clinical indication: Pain; Other: Fall 1.5 weeks ago; Other: Lateral right rib TECHNIQUE: Imaging protocol: Radiologic exam of the Right ribs. Views: 2 views. COMPARISON: SC XR PORTABLE CHEST AP 11/30/2017 2:37 PM FINDINGS: Bones/joints: No rib fracture seen. Soft tissues: Normal. IMPRESSION: No acute findings. PROCEDURE INFORMATION: Exam: XR Chest Exam date and time: 10/26/2021 9:49 PM Age: 76 years old Clinical indication: Pain; Other: Fall 1.5 weeks ago; Other: Lateral right rib TECHNIQUE: Imaging protocol: Radiologic exam of the chest. Views: 2 views. COMPARISON: SC XR PORTABLE CHEST AP 11/30/2017 2:37 PM FINDINGS: Tubes, catheters and devices: Metallic device is seen projecting over the anterior heart which may be an implanted cafeteria monitor. Lungs: No consolidation. Pleural spaces: Unremarkable. No pleural effusion. No pneumothorax. Heart/Mediastinum: Heart size is normal. Vasculature: Atherosclerotic disease. Bones/joints: Age related osseous changes. IMPRESSION: No acute findings. Dictated and Authenticated by: Adela Greco MD. Ordering:KODAK Linares MD
== END 2021-10-26 23:09 | disposition home or self-care (01) ==
PROVIDERS: Emergency Provider Student in an Organized Health Care Education/Training Program; PCP Family Medicine
DX: S20.211A Contusion of right front wall of thorax, initial encounter (principal); Z87.891 Personal history of nicotine dependence; W01.0XXA Fall on same level from slipping, tripping and stumbling without subsequent striking against object, initial encounter; X50.1XXA Overexertion from prolonged static or awkward postures, initial encounter
CPT/HCPCS: 99283; 71046; 71100; 99282

== ENCOUNTER 2021-11-14 13:27 | Emergency (ER) | payer MEDICARE, BC, SELFPAY ==
--- NOTE | 2021-11-14 13:30 | DI.RAD_ITS ---
Exam(s) XR TIB/FIB RT EXAM: XR TIB/FIB RT CLINICAL HISTORY: Injury 4 days ago, R/O Fracture TECHNIQUE: COMPARISON: No exams were available for comparison FINDINGS: Four views were obtained. The ankle mortise is well maintained. There is no evidence of acute fract ure or dislocation. IMPRESSION: RADIATION DOSE DELIVERED: Total DLP
[2021-11-14 13:31] VITALS: BP 143/62; PULSE 74; RESP 16; TEMP 36.7; O2SAT 96
--- NOTE | 2021-11-14 14:18 | W.ED.GENAD ---
Discharge Plan Disposition Patient Disposition: HOME Condition: Stable Discharge Details Clinical Impression: Contusion of leg, right Primary Care Provider: Corey Rodriguez ED Provider: Rhiannon Flynn Home Meds and New Rx's Prescriptions: Continued amlodipine 5 mg tablet 5 mg PO DAILY sildenafil 100 mg tablet 100 mg PO DAILY PRN clonazepam 0.5 mg tablet,disintegrating 0.5 mg PO DIRECTED Qty: 10 0RF Rx Instructions: Take if you have more than one seizure. Ok to take a second if still having seizure. No more than 2 in 24 hours. lamotrigine 100 mg tablet 100 mg PO BID Qty: 180 3RF Rx Instructions: Take 100mg in am and 100mg in pm; Eliquis 5 MG tablet 5 mg PO BID acetaminophen 500 mg tablet 500 mg PO Q6H PRN PRN (Reason: pain) Qty: 60 3RF ibuprofen 600 mg tablet 600 mg PO TID PRNQty: 30 3RF tamsulosin 0.4 mg capsule 1 cap PO DAILY Discharge Instructions Instructions: Contusion in Adults (ED) Additional Instructions: X-rays show no evidence of broken bones or fracture. Rest, ice, compression, elevation. Please keep your leg elevated when you are sitting or lying down. Follow up with primary care provider in 3-5 days. Return to ED sooner if any worsening or concerns. Increase oral fluids. Please take Tylenol or Ibuprofen with food every 4-6 hours as needed for pain and swelling. Referrals: Corey Rodriguez MD [Primary Care Provider] - 1 week Discharge Data Discharge Date/Time-TO BE ENTERED AT DEPARTURE: 11/14/21 14:43 Medical Decision Making 76-year-old male presents to the ER with chief complaint of right anterior richardson pain and swelling after hitting it with a chainsaw approximately 4 days ago. He reports increased pain with weightbearing. He has been taking Tylenol for pain last took some last night. XR negative for fracture. Patient placed in glen wrap discussed results, verbalized understanding. This text was generated using [employer] system, please disregard any oddities of phrase or misspellings. Imaging Data Radiologic Study: Imaging: X-Ray Radiologist's impression: Exam(s) XR TIB/FIB RT EXAM:? XR TIB/FIB RT CLINICAL HISTORY:? Injury 4 days ago, R/O Fracture TECHNIQUE:? COMPARISON:? No exams were available for comparison FINDINGS: Four views were obtained.? The ankle mortise is well maintained.? There is no evidence of acute fracture or dislocation. HPI General Mode of arrival: wheelchair. Date/Time Provider Initiated Documentation: 11/14/21 13:28. Limitations to Documentation: no limitations. Information obtained by: patient, RN notes reviewed and old records reviewed. HPI Narrative: 76-year-old male presents to the ER with chief complaint of right anterior richardson pain and swelling after hitting it with a chainsaw approximately 4 days ago. He reports increased pain with weightbearing. He has been taking Tylenol for pain last took some last night. He does have a past medical history of mitral insufficiency, atrial fibrillation, pacemaker, BPH, hypertension he does take Eliquis. Related Data Home Medications Medication Instructions Recorded Confirmed apixaban 5 mg tablet (Eliquis) 5 mg PO BID 07/02/17 11/14/21 amlodipine 5 mg tablet 5 mg PO DAILY 05/05/18 11/14/21 acetaminophen 500 mg tablet 500 mg PO Q6H PRN PRN pain #60 tabs 02/10/19 11/14/21 ibuprofen 600 mg tablet 600 mg PO TID PRN #30 tabs 02/10/19 11/14/21 sildenafil 100 mg tablet 100 mg PO DAILY PRN 05/04/19 11/14/21 clonazepam 0.5 mg disintegrating 0.5 mg PO DIRECTED #10 tabs 06/04/19 11/14/21 tablet lamotrigine 100 mg tablet 100 mg PO BID #180 tabs 10/24/20 11/14/21 tamsulosin 0.4 mg capsule 1 cap PO DAILY 10/26/21 11/14/21 Previous Rx's Medication Instructions Recorded acetaminophen 500 mg tablet 500 mg PO Q6H PRN PRN pain #60 tabs 02/10/19 ibuprofen 600 mg tablet 600 mg PO TID PRN #30 tabs 02/10/19 clonazepam 0.5 mg disintegrating 0.5 mg PO DIRECTED #10 tabs 06/04/19 tablet lamotrigine 100 mg tablet 100 mg PO BID #180 tabs 10/24/20 Allergies Allergy/AdvReac Type Severity Reaction Status Date / Time garlic AdvReac Intermediate Other (See Verified 11/14/21 13:36 Comment) gluten AdvReac Intermediate Other (See Verified 11/14/21 13:36 Comment) lactose AdvReac Intermediate Other (See Verified 11/14/21 13:36 Comment) wheat AdvReac Intermediate digestive Verified 11/14/21 13:36 onion AdvReac Other (See Verified 11/14/21 13:36 Comment) General Stated Complaint: Orthopedic JULIANNA: 4 Review of Systems Musculoskeletal Musculoskeletal: Reports as per HPI and Reports other (Right leg pain) PFSH All Active Problems (Updated 11/14/21 @ 14:23 by Rhiannon Flynn NP) Contusion of rib on right side (Acute) Contusion of leg, right (Acute) Mild cognitive impairment (Acute) Mitral insufficiency (Chronic) Atrial fibrillation (Chronic) Erectile dysfunction (Acute) Dupuytren's contracture of left hand (Chronic) Status post partial palmar fasciectomy 02/10/2019 Normal memory function (Acute) Idiopathic peripheral neuropathy (Chronic) Skin carcinoma (Chronic) Pacemaker (Acute) June 2017 BPH (benign prostatic hyperplasia) (Chronic) Aortic insufficiency (Chronic) Hypertension (Chronic) Tubular adenoma of colon (Chronic 02/01/16) 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) Manifested by confusion and asystole Chronic atrial fibrillation (Chronic) Medical History (Updated 11/14/21 @ 14:23 by Rhiannon Flynn NP) Complete heart block Lower gastrointestinal bleed Peripheral neuropathy Sick sinus syndrome Surgical History Colonoscopy - IV Sedation (02/01/16) History of tonsillectomy Family History Mother Alzheimer disease Hypertension Father ETOH abuse [place] (myocardial infarction) Social History Smoking/Tobacco Use Status: Former Tobacco Use Quit Date: 03/25/1966 Smoking risk assessment performed?: Yes Alcohol Intake: current Alcohol Intake frequency: 0-2 drinks per day Alcohol type: wine Drug use: Never Substance use type: does not use Household members: spouse current occupation: Works for the [employer] Current gender identity: male Do you feel safe at home: Yes Do you feel safe in your relationship?: Yes Additional Social history: . 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 Former smoker. He drinks one glass of wine most evenings. No illicit drug use. Exam Extrem Right lower extremity: lower leg Details: erythema, tenderness and localized swelling; no pitting edema, no abrasions and no lacerations Upper/lower leg/hip images: 1. Swelling, ecchymosis, tenderness Course Vital Signs Vital signs: Vital Signs Temperature 36.7 C 11/14/21 13:31 Pulse 74 11/14/21 13:31 Respiratory Rate 16 11/14/21 13:31 Blood Pressure 143/62 H 11/14/21 13:31 Pulse Oximetry 96 11/14/21 13:31 Temperature 36.7 C 11/14/21 13:31 Temperature Source Temporal Artery Scan 11/14/21 13:31 Pulse 74 11/14/21 13:31 Respiratory Rate 16 11/14/21 13:31 Respiratory Effort Non-Labored 11/14/21 13:34 Blood Pressure 143/62 H 11/14/21 13:31 Blood Pressure Position Sitting 11/14/21 13:31 Pulse Oximetry 96 11/14/21 13:31 Oxygen Delivery Method Room Air 11/14/21 13:31 Oxygen Flow Rate 0 11/14/21 13:31 Pain Level 7 11/14/21 13:31 PAWSS Have you Been Recently Intoxicated or Drunk Within the Last 30 days?: No Have you Ever Experienced Previous Episodes of Alcohol Withdrawal?: No Have you ever Experienced Withdrawal Seizures?: No Have you ever Experienced Delirium Tremens(DT)s?: No Have you ever undergone Alcohol Rehabilitation Treatment (i.e, inpt ot outpatient treatment programs)?: No Have you ever Experienced Blackouts?: No Have you ever Combined Alcohol with other Downers within the last 90 days?: No Have you ever Combined Alcohol with any other Substance of Abuse during the last 90 days?: No Positive Blood Alcohol level on Presentation? [PCS.BAL]: No Evidence of Increased Autonomic Activity (i.e. HR>120, tremor, sweating, agitation, nausea)?: No Result: 0
[2021-11-14] MEDS: Acetaminophen 325 MG TAB 650 MG PO (14:41)
== END 2021-11-14 14:43 | disposition home or self-care (01) ==
PROVIDERS: Emergency Provider Registered Nurse Emergency; PCP Family Medicine
DX: S80.11XA Contusion of right lower leg, initial encounter (principal); I10 Essential (primary) hypertension; Z87.891 Personal history of nicotine dependence; W29.3XXA Contact with powered garden and outdoor hand tools and machinery, initial encounter
CPT/HCPCS: 99283; 73590; 99282

== ENCOUNTER → 2021-11-16 14:50 | Outpatient (BNVA) | payer MEDICARE, BC, SELFPAY | PROVIDERS: PCP Family Medicine; Referring Provider Family Medicine; Visit Provider Psychiatry & Neurology Neurology | DX: G40.109 Localization-related (focal) (partial) symptomatic epilepsy and epileptic syndromes with simple partial seizures, not intractable, without status epilepticus (principal); G62.9 Polyneuropathy, unspecified; G31.84 Mild cognitive impairment of uncertain or unknown etiology; I10 Essential (primary) hypertension | CPT/HCPCS: 99214 ==

== ENCOUNTER 2021-11-20 18:56 | Outpatient (REF) | payer MEDICARE, BC, SELFPAY ==
[2021-11-20 17:51] LABS: HCT 42.9 % (40.0-50.0); HGB 14.6 g/dL (13.5-17.5); MCH 30.4 pg (27.0-33.0); MCV 89 fL (80-95); MPV 11.1 fL (8.0-11.0); Platelet Count 296 10^3/uL (130-400); RBC 4.81 10^6/uL (4.36-5.78); RDW 12.9 % (11.8-14.1); RDW-SD 42.5 fL; WBC 5.52 10^3/uL (4.4-10.8)
[2021-11-20 18:11] LABS: ALT 19 U/L (16-63); AST 20 U/L (15-37); Albumin 3.8 g/dL (3.4-5.0); Alkaline Phosphatase 101 U/L (46-116); Anion Gap 8.4 mmol/L (3-11); BUN 13 mg/dL (7-18); Bilirubin, Total 0.8 mg/dL (0.2-1.0); CO2 30.6 mmol/L (21.0-32.0); CREATININE 0.9 mg/dL (0.70-1.30); Calcium 9.8 mg/dL (8.5-10.1); Chloride 103 mmol/L (98-107); Estimated GFR 87.42 (mL/min/1.73m2); Glucose 106 mg/dL (74-106); Sodium 142 mmol/L (136-145); Total Protein 7.2 g/dL (6.4-8.2)
[2021-11-20 19:01] LABS: TSH (W/Ref FT4) 1.94 uIU/mL (0.36-3.74); Vitamin B12 462 pg/mL (193-986)
== END 2021-11-20 18:57 | disposition home or self-care (01) ==
LOC: NCHCN 18:56
PROVIDERS: PCP Family Medicine; Visit Provider Family Medicine
DX: G60.9 Hereditary and idiopathic neuropathy, unspecified (principal); I10 Essential (primary) hypertension; G40.909 Epilepsy, unspecified, not intractable, without status epilepticus; I48.91 Unspecified atrial fibrillation
CPT/HCPCS: 80053; 85027; 82607; 84443

== ENCOUNTER 2022-03-09 00:59 | Outpatient (CLI) | payer MEDICARE, BC, SELFPAY ==
[2022-03-09 10:07] LABS: HGB 15.4 g/dL (13.5-17.5); MCH 30.4 pg (27.0-33.0); MCHC 33.5 % (32.0-36.0); MCV 91 fL (80-95); MPV 9.2 fL (8.0-11.0); Platelet Count 236 10^3/uL (130-400); RBC 5.06 10^6/uL (4.36-5.78); RDW 13.2 % (11.8-14.1); RDW-SD 44.6 fL; WBC 4.62 10^3/uL (4.4-10.8)
[2022-03-09 10:48] LABS: ALT 26 U/L (16-63); AST 24 U/L (15-37); Albumin 4.1 g/dL (3.4-5.0); Alkaline Phosphatase 116 U/L (46-116); Anion Gap 5.3 mmol/L (3-11); BUN 14 mg/dL (7-18); Bilirubin, Total 0.6 mg/dL (0.2-1.0); CO2 30.7 mmol/L (21.0-32.0); CREATININE 1.2 mg/dL (0.70-1.30); Chloride 102 mmol/L (98-107); Glucose 112 mg/dL (74-106); Potassium 3.8 mmol/L (3.5-5.1); Sodium 138 mmol/L (136-145); TSH (W/Ref FT4) 1.53 uIU/mL (0.36-3.74); Total Protein 7.7 g/dL (6.4-8.2); Vitamin B12 574 pg/mL (193-986)
[2022-03-11 15:55] LABS: Lamotrigine 5.4 mcg/mL (3.0-15.0)
== END 2022-03-09 01:00 | disposition home or self-care (01) ==
LOC: LBO 00:59
PROVIDERS: Psychiatry & Neurology Neurology; PCP Family Medicine; Visit Provider Family Medicine
DX: G31.84 Mild cognitive impairment of uncertain or unknown etiology (principal); G40.109 Localization-related (focal) (partial) symptomatic epilepsy and epileptic syndromes with simple partial seizures, not intractable, without status epilepticus; G62.9 Polyneuropathy, unspecified; I10 Essential (primary) hypertension; Z79.899 Other long term (current) drug therapy; Z51.81 Encounter for therapeutic drug level monitoring
CPT/HCPCS: 36415; 80053; 80175; 85027; 82607; 84443

== ENCOUNTER → 2022-03-14 09:29 | Outpatient (BNVA) | payer MEDICARE, BC, SELFPAY | PROVIDERS: PCP Family Medicine; Referring Provider Internal Medicine; Visit Provider Physician Assistant | DX: Z95.0 Presence of cardiac pacemaker (principal); I44.2 Atrioventricular block, complete | CPT/HCPCS: 93279 ==

== ENCOUNTER → 2022-09-21 13:33 | Outpatient (BNVA) | payer MEDICARE, BC, SELFPAY | PROVIDERS: PCP Family Medicine; Visit Provider Internal Medicine Cardiovascular Disease | DX: I34.0 Nonrheumatic mitral (valve) insufficiency (principal); I48.91 Unspecified atrial fibrillation; Z79.01 Long term (current) use of anticoagulants; Z95.0 Presence of cardiac pacemaker | CPT/HCPCS: 99214 ==

== ENCOUNTER → 2022-11-15 11:16 | Outpatient (BNVA) | payer MEDICARE, BC, SELFPAY | PROVIDERS: PCP Family Medicine; Visit Provider Psychiatry & Neurology Neurology | DX: G60.9 Hereditary and idiopathic neuropathy, unspecified (principal); G31.84 Mild cognitive impairment of uncertain or unknown etiology; I10 Essential (primary) hypertension; G40.109 Localization-related (focal) (partial) symptomatic epilepsy and epileptic syndromes with simple partial seizures, not intractable, without status epilepticus | CPT/HCPCS: 99214 ==

== ENCOUNTER 2022-11-22 10:44 | Outpatient (REF) | payer MEDICARE, BC, SELFPAY ==
[2022-11-22 14:47] LABS: HCT 45.4 % (40.0-50.0); HGB 15.5 g/dL (13.5-17.5); MCH 30.5 pg (27.0-33.0); MCHC 34.1 % (32.0-36.0); MCV 89 fL (80-95); MPV 10.4 fL (8.0-11.0); Platelet Count 277 10^3/uL (130-400); RBC 5.09 10^6/uL (4.36-5.78); RDW 12.6 % (11.8-14.1); RDW-SD 41.8 fL; WBC 4.87 10^3/uL (4.4-10.8)
[2022-11-22 15:00] LABS: Anion Gap 7.1 mmol/L (3-11); BUN 13 mg/dL (7-18); CO2 28.9 mmol/L (21.0-32.0); CREATININE 1.1 mg/dL (0.70-1.30); Chloride 103 mmol/L (98-107); Estimated GFR 68.29 (mL/min/1.73m2); Glucose 98 mg/dL (74-106); Potassium 4.4 mmol/L (3.5-5.1); Sodium 139 mmol/L (136-145)
== END 2022-11-22 10:45 | disposition home or self-care (01) ==
LOC: NCHCN 10:44
PROVIDERS: PCP Family Medicine; Visit Provider Family Medicine
DX: I10 Essential (primary) hypertension (principal); I48.91 Unspecified atrial fibrillation; I35.1 Nonrheumatic aortic (valve) insufficiency
CPT/HCPCS: 80048; 85027

== ENCOUNTER → 2023-03-13 09:04 | Outpatient (BNVA) | payer MEDICARE, BC, SELFPAY | PROVIDERS: PCP Family Medicine; Referring Provider Family Medicine; Visit Provider Physician Assistant | DX: Z95.0 Presence of cardiac pacemaker (principal); I48.20 Chronic atrial fibrillation, unspecified | CPT/HCPCS: 93279 ==

== ENCOUNTER → 2023-08-28 01:17 | Outpatient (CLI) | payer MEDICARE, BC, SELFPAY ==
--- NOTE | 2023-08-28 12:30 | DI.US_ITS ---
APPROVED REPORT EXAM: Comprehensive 2D, Doppler, and color-flow Echocardiogram Patient Location: [facility] Therapist: Chino Oneil RDCS (AE) Indications: Mitral regurgitation, aortic sclerosis Conclusion Concentric left ventricular hypertrophy. Ejection fraction is 50%. Septal motion suggests an IVCD. Anterior wall is hypocontractile Normal right ventricular size and function Left atrium is severely dilated. Right atrial size is normal Aortic valve is sclerotic and trileaflet. There is minimal aortic stenosis with a mean gradient of 7 mmHg. There is mild aortic regurgitation Mitral annular calcification, mildly thickened mitral leaflets, moderate mitral regurgitation Mild tricuspid regurgitation. Estimated right ventricular systolic pressure is 30 mmHg Wall motion Left Ventricle The left ventricle is normal size. Left ventricular systolic function is mildly decreased. Moderate c oncentric left ventricular hypertrophy. Anterior wall is akinetic. Septal motion suggests an IVCD The re is no ventricular septal defect visualized. LVEF is 50%. Right Ventricle The right ventricle is normal size. The right ventricular systolic function is normal. Atria Left atrium is severely dilated. The right atrium size is normal. The interatrial septum is intact wi th no evidence for an atrial septal defect. Aortic Valve The Aortic valve is sclerotic. Aortic valve is probably trileaflet. There is no aortic valvular steno sis. Mean gradient is 7 mmHg Mild aortic regurgitation. Mitral Valve Moderate mitral annular calcification. Mitral valve leaflets are mildly thickened. No evidence of kindra ral valve stenosis. Moderate mitral regurgitation. Tricuspid Valve The tricuspid valve is normal in structure. There is no tricuspid valve stenosis. Mild tricuspid regu rgitation. The RVSP is 30.4 mmHg. Pulmonic Valve The pulmonary valve is normal in structure. There is no pulmonic valvular stenosis. There is no pulmo guillermo valvular regurgitation. Great Vessels The aortic root is normal in size. The ascending aorta is normal in size. Aortic arch is normal in ca liber. IVC is normal in size and collapses >50% with inspiration. Pericardium There is no pericardial effusion. 2D Dimensions IVSD d PLAX 1.67 cm M: 0.6-1.2 Ao Root d 3.49 cm M: 3.1 - 3.7 LVPW d PLAX 1.67 cm M: 0.6 - 1.2 Ao Asc Diam d 3.24 cm M: 2.6 - 3.4 LVID d PLAX 4.71 cm M: 4.2 - 5.8 LVDs 3.18 cm M: 2.5 - 4.0 LV EF Teichholz 60.7 % FS 32.42 % LV EDV (Teich) 103.0 mL LV ESV (Teich) 40.5 mL Stroke Vol Index (Teich) 29.34 M-Mode TAPSE 1.89 cm (M/F) >1.7 Auto EF LV EDV A4C 205.2 mL LV EDV A2C 192.5 mL LV EDV BP 212.5 mL LV ESV A4C 81.1 mL LV ESV A2C 71.0 mL LV ESV BP 78.7 mL LVEF(%) A4C 60.5 % LVEF(%) A2C 63.1 % LVEF(%) BP 63.0 % LV SV A4C 124.0 ml LV SV A2C 121.4 ml LV SV BP 133.8 ml LV CO A4C 7.5 L/min LV CO A2C 7.4 L/min LV CO BP 7.4 L/min HR A4C 60.29 BPM HR A2C 60.71 BPM LV EDV Index (BP) LA Volume LA Length A4C 6.8 cm LA Length A2C 7.8 cm LA Area A4C s 36.88 cm2 LA Area A2C s 43.03 cm2 LA Vol A4C A-L 170.91 mL LA Vol A2C A-L 201.42 mL LA Vol Biplane A-L 199.4 mL LA Vol/BSA A4C A-L LA Vol/BSA A2C A-L LA Vol/BSA BP A-L 93.6 mL/m2 LA Vol A4C MOD 161.5 mL LA Vol A2C MOD 195.3 mL LA Vol BP MOD 189.4 mL LV Diastology MV E' medial 0.101 (>0.07 m/s) MV E Vmax 1.13 (0.4-1.3 m/s) MV E' lateral 0.125 (>0.1 m/s) Aortic Valve AoV Vmax 1.97 m/s LVOT Vmax 0.78 m/s AoV Peak Grad 26.4 mmHg LVOT Peak Grad 2.4 mmHg AoV Area (Vmax) 1.60 cm2 LVOT VTI 0.188 m AoV VTI 0.420 m LVOT Mean Grad 1.5 mmHg AoV Mean Kirill. 1.25 m/s LVOT SV 76.08 mL AoV Mean Grad 7.4 mmHg LVOT Diam s 2.25 cm AoV Area (VTI) 1.81 cm2 AV Regurg Peak Gr. 37.15 mmHg Velocity Ratio 0.40 AR Decel [place] 1.8m/sec2 AR DT 1704 msec AR PHT 494 msec AR Vmax 3.05 m/s Pulmonary Valve PV Vmax 0.96 (0.5-1.5 m/s) RVOT Vmax 0.44 m/s PV Peak Grad 3.7 mmHg RVOT Peak Gr. 0.8 mmHg PV Mean Kirill 0.66 m/s RVOT VTI 0.088 m PV Mean Grad 2.0 mmHg RVOT Mean Gr. 0.5 mmHg Tricuspid Valve RA Pressure 3.00 mmHg TR Vmax 2.62 m/s TR Peak Grad 27.4 mmHg RVSP (TR) 30.4 mmHg
== END ==
PROVIDERS: PCP Family Medicine; Visit Provider Internal Medicine Cardiovascular Disease
DX: I48.91 Unspecified atrial fibrillation (principal); I34.0 Nonrheumatic mitral (valve) insufficiency
CPT/HCPCS: 93306

== ENCOUNTER → 2023-11-01 11:34 | Outpatient (BNVA) | payer MEDICARE, BC, SELFPAY | PROVIDERS: PCP Family Medicine; Visit Provider Internal Medicine Cardiovascular Disease | DX: I48.21 Permanent atrial fibrillation (principal); I34.0 Nonrheumatic mitral (valve) insufficiency; Z95.0 Presence of cardiac pacemaker | CPT/HCPCS: 99213 ==

== ENCOUNTER → 2023-11-18 14:14 | Outpatient (BNVA) | payer MEDICARE, BC, SELFPAY | PROVIDERS: PCP Family Medicine; Referring Provider Family Medicine; Visit Provider Psychiatry & Neurology Neurology | DX: G60.9 Hereditary and idiopathic neuropathy, unspecified (principal); G31.84 Mild cognitive impairment of uncertain or unknown etiology; I10 Essential (primary) hypertension; G40.109 Localization-related (focal) (partial) symptomatic epilepsy and epileptic syndromes with simple partial seizures, not intractable, without status epilepticus | CPT/HCPCS: 99213 ==

== ENCOUNTER 2023-11-28 16:11 | Outpatient (REF) | payer MEDICARE, BC, SELFPAY ==
[2023-11-28 15:23] LABS: Abs Immature Grans 0.01 10^3/uL (0.0-0.06); Absolute Basophil Count 0.06 10^3/uL (0.0-0.2); Absolute Eosinophil Count 0.17 10^3/uL (0.0-0.7); Absolute Lymphocyte Count 1.81 10^3/uL (1.2-3.4); Absolute Monocyte Count 0.62 10^3/uL (0.1-0.8); Basophils % 1.2 %; Eosinophils % 3.4 %; HCT 43.4 % (40.0-50.0); HGB 14.6 g/dL (13.5-17.5); Immature Grans % 0.2 %; Lymphocytes % 36.4 %; MCH 30.5 pg (27.0-33.0); MCHC 33.6 % (32.0-36.0); MCV 91 fL (80-95); MPV 10.4 fL (8.0-11.0); Monocytes % 12.5 %; Neutrophils % 46.3 %; Platelet Count 298 10^3/uL (130-400); RBC 4.78 10^6/uL (4.36-5.78); RDW 13.2 % (11.8-14.1); WBC 4.97 10^3/uL (4.4-10.8)
[2023-11-28 15:30] LABS: ALT 28 U/L (16-63); AST 21 U/L (15-37); Albumin 4.1 g/dL (3.4-5.0); Alkaline Phosphatase 99 U/L (46-116); Anion Gap 8.3 mmol/L (3-11); BUN 15 mg/dL (7-18); Bilirubin, Total 0.88 mg/dL (0.2-1.0); CO2 27.7 mmol/L (21.0-32.0); CREATININE 1.1 mg/dL (0.70-1.30); Calcium 9.6 mg/dL (8.5-10.1); Chloride 103 mmol/L (98-107); Estimated GFR 67.86 (mL/min/1.73m2); Glucose 96 mg/dL (74-106); Potassium 4.4 mmol/L (3.5-5.1); Sodium 139 mmol/L (136-145); Total Protein 7.3 g/dL (6.4-8.2)
== END 2023-11-28 16:12 | disposition home or self-care (01) ==
LOC: NCHCN 16:11
PROVIDERS: PCP Family Medicine; Visit Provider Family Medicine
DX: I10 Essential (primary) hypertension (principal)
CPT/HCPCS: 80053; 85025

== ENCOUNTER 2024-01-28 22:20 | Outpatient (REF) | payer MEDICARE, BC, SELFPAY ==
[2024-01-28 22:26] LABS: Bilirubin Negative (Negative); Blood Large (Negative); Clarity Clear (Clear); Glucose Negative (Negative); Ketones Negative (Negative); Leukocyte Esterase Negative (Negative); Nitrite Negative (Negative); Urobilinogen 0.2 mg/dL (Up to 0.2); pH 6.5 (5-8)
[2024-01-28 22:35] LABS: Epithelial Cells Rare HPF (Negative); RBC >50 HPF (0-2); WBC Negative HPF (0-5)
[2024-01-28 22:36] LABS: Bacteria Negative HPF (Negative); C & S Indicated? No; Crystals Few Calcium Oxalate HPF (Negative); Mucus Trace (Negative)
== END 2024-01-28 22:21 | disposition home or self-care (01) ==
LOC: NCHCN 22:20
PROVIDERS: PCP Family Medicine; Visit Provider Family Medicine
DX: R31.9 Hematuria, unspecified (principal)
CPT/HCPCS: 81003; 81015

== ENCOUNTER 2024-04-02 18:41 | Outpatient (REF) | payer MEDICARE, BC, SELFPAY ==
[2024-04-02 20:56] LABS: C Diff PCR Negative (Negative)
[2024-04-06 16:59] LABS: Cryptosporidium, F Negative (Negative); Giardia Ag, F Negative (Negative)
== END 2024-04-02 18:42 | disposition home or self-care (01) ==
LOC: NCHCN 18:41
PROVIDERS: PCP Family Medicine; Visit Provider Family Medicine
DX: R19.7 Diarrhea, unspecified (principal)
CPT/HCPCS: 87328; 87329; 87493; 87177

== ENCOUNTER 2024-06-10 08:44 | Outpatient (CLI) | payer MEDICARE, BC, SELFPAY ==
--- NOTE | 2024-06-10 08:30 | RT.EKG_ITS ---
APPROVED REPORT Exam: Resting ECG Reason for Exam: afib Patient Location: O HR:67 bpm ECG Measurements Heart Rate [address] 39 P 0 QRSd 167 QRS -41 QT 453 T 128 QTc 479 Conclusion Ventricular paced rhythm Underlying atrial fibrillation
== END 2024-06-10 08:45 | disposition home or self-care (01) ==
LOC: DI.CARD 08:45
PROVIDERS: PCP Family Medicine; Visit Provider Student in an Organized Health Care Education/Training Program
DX: I48.21 Permanent atrial fibrillation (principal); Z95.0 Presence of cardiac pacemaker
CPT/HCPCS: 93010

== ENCOUNTER → 2024-06-10 14:40 | Outpatient (BNVA) | payer MEDICARE, BC, SELFPAY | PROVIDERS: PCP Family Medicine; Visit Provider Student in an Organized Health Care Education/Training Program | DX: Z95.810 Presence of automatic (implantable) cardiac defibrillator (principal) | CPT/HCPCS: 93005; 93279 ==

== ENCOUNTER 2024-08-06 21:52 | Outpatient (REF) | payer MEDICARE, BC, SELFPAY | END 2024-08-06 21:53 | disposition home or self-care (01) | LOC: LBN 21:52 | PROVIDERS: PCP Family Medicine; Visit Provider Nurse Practitioner Gerontology | DX: A07.1 Giardiasis [lambliasis] (principal) | CPT/HCPCS: 87015; 87269; 87272 ==

== ENCOUNTER → 2024-11-16 10:16 | Outpatient (BNVA) | payer MEDICARE, BC, SELFPAY | PROVIDERS: PCP Family Medicine; Visit Provider Psychiatry & Neurology Neurology | DX: G40.109 Localization-related (focal) (partial) symptomatic epilepsy and epileptic syndromes with simple partial seizures, not intractable, without status epilepticus (principal); G60.9 Hereditary and idiopathic neuropathy, unspecified; G31.84 Mild cognitive impairment of uncertain or unknown etiology; I10 Essential (primary) hypertension | CPT/HCPCS: 99214 ==

== ENCOUNTER → 2024-12-07 10:15 | Outpatient (BNVA) | payer MEDICARE, BC, SELFPAY | PROVIDERS: PCP Family Medicine; Visit Provider Registered Nurse | DX: I48.20 Chronic atrial fibrillation, unspecified (principal); Z95.0 Presence of cardiac pacemaker; I34.0 Nonrheumatic mitral (valve) insufficiency; I10 Essential (primary) hypertension; Z79.01 Long term (current) use of anticoagulants | CPT/HCPCS: 99214 ==

== ENCOUNTER 2024-12-14 13:43 | Outpatient (REF) | payer MEDICARE, BC, SELFPAY ==
[2024-12-14 14:40] LABS: Abs Immature Grans 0.01 10^3/uL (0.0-0.06); HCT 42.9 % (40.0-50.0); HGB 14.4 g/dL (13.5-17.5); Immature Grans % 0.2 %; MCH 30.5 pg (27.0-33.0); MCHC 33.6 % (32.0-36.0); MCV 91 fL (80-95); MPV 10.4 fL (8.0-11.0); Platelet Count 257 10^3/uL (130-400); RBC 4.72 10^6/uL (4.36-5.78); RDW 13.3 % (11.8-14.1); RDW-SD 44.7 fL; WBC 6.50 10^3/uL (4.4-10.8)
[2024-12-14 16:52] LABS: ALT 34 U/L (16-63); AST 28 U/L (15-37); Albumin 4.1 g/dL (3.4-5.0); Alkaline Phosphatase 98 U/L (46-116); Anion Gap 10.0 mmol/L (3-11); BUN 14 mg/dL (7-18); Bilirubin, Total 0.7 mg/dL (0.2-1.0); CO2 26.0 mmol/L (21.0-32.0); Calcium 10.3 mg/dL (8.5-10.1); Chloride 104 mmol/L (98-107); Estimated GFR 75.61 (mL/min/1.73m2); Glucose 99 mg/dL (74-106); Potassium 4.0 mmol/L (3.5-5.1); Sodium 140 mmol/L (136-145); Total Protein 7.3 g/dL (6.4-8.2)
== END 2024-12-14 13:44 | disposition home or self-care (01) ==
LOC: NCHCN 13:43
PROVIDERS: PCP Family Medicine; Visit Provider Family Medicine
DX: I10 Essential (primary) hypertension (principal)
CPT/HCPCS: 80053; 80175; 85025